=== PATIENT | male | born 1995 | race Hispanic/Latino ===

== ENCOUNTER 2020-07-27 09:03 | Emergency (ER) | payer SELFPAY ==
[2020-07-27 09:37] VITALS: BP 116/63
--- NOTE | 2020-07-27 10:03 | XRay Report ---
RIGHT HAND 2 VIEWS INDICATION: injury/pain. COMPARISON: None. IMPRESSION: Minimally displaced oblique fracture is identified through the shaft of the proximal pha lanx of the fifth digit. No calcified callus is identified consistent with acute injury. No additiona l acute fractures appreciated. The fifth metacarpal appears shortened probably representing previous healed fracture. Correlate with the patient's history. The remaining bony structures and joint space s are unremarkable. Signer Name: Conner Ron Jr, MD Signed: 07/27/2020 9:58 AM Workstation Name: [id number]
--- NOTE | 2020-07-27 10:18 | Emergency Department Report ---
ED General Adult HPI - General Chief complaint: Extremity Injury, Upper Stated complaint: RT FINGER INJURY Time Seen by Provider: 07/27/20 09:55 Source: patient Mode of arrival: Ambulatory Limitations: No Limitations - History of Present Illness Initial comments: 25-year-old male patient presents with complaints of right little finger pain and swelling x last night. Patient states he hit his finger on a friend's arm and then on a door. He rates his pain as 8/10 in severity and states it worsens with movement. He denies any color changes or numbness/tingling in his finger. He denies trying any OTC medications for his pain - Related Data Previous Rx's Medication Instructions Recorded Last Taken Type Acetaminophen/Codeine [Tylenol 1 tab PO Q8H PRN #8 tab 07/27/20 Unknown Rx /Codeine # 3 tab] Naproxen 500 mg PO BID PRN #14 tablet 07/27/20 Unknown Rx Allergies Allergy/AdvReac Type Severity Reaction Status Date / Time No Known Allergies Allergy Unverified 07/27/20 09:34 ED Review of Systems ROS: Stated complaint: RT FINGER INJURY Other details as noted in HPI Musculoskeletal: joint swelling, arthralgia Skin: denies: change in color Neurological: denies: numbness, paresthesias ED Past Medical Hx - Past Medical History Previous Medical History?: No - Surgical History Past Surgical History?: No - Medications Home Medications: Home Medications Medication Instructions Recorded Confirmed Last Taken Type Acetaminophen/Codeine [Tylenol 1 tab PO Q8H PRN #8 tab 07/27/20 Unknown Rx /Codeine # 3 tab] Naproxen 500 mg PO BID PRN #14 tablet 07/27/20 Unknown Rx ED Physical Exam - General Limitations: No Limitations General appearance: alert, in no apparent distress - Head Head exam: Present: atraumatic, normocephalic - Eye Eye exam: Present: normal appearance - Respiratory Respiratory exam: Absent: respiratory distress - Cardiovascular Cardiovascular Exam: Present: regular rate - Extremities Exam Extremities exam: Present: other (Tenderness to palpation noted to the proximal right fifth phalanx with mild swelling; patient has normal sensation and perfusion of the finger; range of motion is limited by pain) - Neurological Exam Neurological exam: Present: alert, oriented X3 - Psychiatric Psychiatric exam: Present: normal affect, normal mood - Skin Skin exam: Present: warm, dry, intact, normal color. Absent: rash ED Course Vital Signs 07/27/20 09:36 Temperature 98.0 F Pulse Rate 49 L Respiratory 16 Rate Blood Pressure 116/63 [Right] O2 Sat by Pulse 100 Oximetry ED Medical Decision Making - Radiology Data Radiology results: report reviewed RIGHT HAND 2 VIEWS INDICATION: injury/pain. COMPARISON: None. IMPRESSION: Minimally displaced oblique fracture is identified through the shaft of the proximal phalanx of the fifth digit. No calcified callus is identified consistent with acute injury. No additional acute fractures appreciated. The fifth metacarpal appears shortened probably representing previous healed fracture. Correlate with the patient's history. The remaining bony structures and joint spaces are unremarkable. - Medical Decision Making 25-year-old male patient presents with complaints of right little finger pain and swelling x last night. Patient states he hit his finger on a friend's arm and then on a door. He rates his pain as 8/10 in severity and states it worsens with movement. He denies any color changes or n umbness/tingling in his finger. He denies trying any OTC medications for his pain X-ray shows minimally displaced fracture of the right fifth proximal phalanx. Patient placed in a metal finger splint and informed to follow-up with orthopedics within 3 days. He denies any discomfort with the splint and has normal sensation post splint application. Discussed signs and symptoms that should prompt immediate return to the emergency department in detail with patient who verbalizes understanding. Patient is otherwise well-appearing, his vitals are normal, he is stable for discharge home. Critical care attestation.: If time is entered above; I have spent that time in minutes in the direct care of this critically ill patient, excluding procedure time. ED Disposition Clinical Impression: Finger fracture, right Qualifiers: Encounter type: initial encounter Finger: little finger Fracture type: closed Phalanx: proximal Fracture alignment: displaced Qualified Code(s): S62.616A - Displaced fracture of proximal phalanx of right little finger, initial encounter for closed fracture Disposition: - TO HOME OR SELFCARE Is pt being admited?: No Condition: Stable Instructions: Cast or Splint Care, Adult, [id number], Finger Fracture, Adult Prescriptions: Naproxen 500 mg PO BID PRN #14 tablet PRN Reason: Pain, Moderate (4-6) Acetaminophen/Codeine [Tylenol /Codeine # 3 tab] 1 tab PO Q8H PRN #8 tab PRN Reason: Pain , Severe (7-10) Referrals: [facility] [Provider Group] - 07/30/20 Forms: Work/School Release Form(ED)
== END 2020-07-27 11:02 | disposition home or self-care (01) ==
LOC: ED 09:03
DX: S62.616A Displaced fracture of proximal phalanx of right little finger, initial encounter for closed fracture (principal); Z79.899 Other long term (current) drug therapy; X58.XXXA Exposure to other specified factors, initial encounter; Y93.89 Activity, other specified; Y92.89 Other specified places as the place of occurrence of the external cause; Y99.8 Other external cause status
CPT/HCPCS: 99283